=== PATIENT | male | born 1965 ===

== ENCOUNTER 2016-10-03 14:03 | Emergency (ER) | payer OTHER ==
[2016-10-03 14:21] VITALS: BP 114/67; PULSE 52; RESP 18; TEMP 97; O2SAT 98
--- NOTE | 2016-10-03 15:05 | ED PDOC ---
HPI: Skin/Bite Injury Time Seen by Provider: 10/03/16 14:36 Chief Complaint (Nursing): Abnormal Skin Integrity Chief Complaint (Provider): Rash History Per: Patient History/Exam Limitations: no limitations Onset/Duration Of Symptoms: Days (x3 days) Current Symptoms Are (Timing): Still Present Location Of Injury: Anterior: Back, Chest Severity: Mild Additional Complaint(s): Jun Nicolas is a 51 year old male, with no pertinent past medical history, who presents to the emergency department for the evaluation of a non-pruritic, painless rash, localized to anterior chest and back, that the patient has had for the past 3 days. Patient states that he took Benadryl for his symptoms; however, it provided no relief, prompting his visit to the emergency department. Denies a fever. Of note, patient has no known drug allergies. PMD: none specified Past Medical History Reviewed: Historical Data, Nursing Documentation, Vital Signs Vital Signs: Last Vital Signs Temp 97 F L 10/03/16 14:18 Pulse 52 L 10/03/16 14:18 Resp 18 10/03/16 14:18 BP 114/67 10/03/16 14:18 Pulse Ox 98 10/03/16 15:38 - Medical History PMH: Cardia Arrhythmia (saw negative cutter, was admitted with negative workup) - Surgical History Surgical History: Appendectomy - Family History Family History: States: No Known Family Hx - Social History Current smoker - smoking cessation education provided: No Ex-Smoker (has not smoked in the last 12 months): Yes Alcohol: None Drugs: Denies - Home Medications Home Medications: Ambulatory Orders Medication Instructions Recorded Cyclobenzaprine [Cyclobenzaprine 10 mg PO BID #14 tab 11/13/15 HCl] Ibuprofen [Motrin] 400 mg PO Q6 #30 tab 11/13/15 Meclizine [Meclizine*] 25 mg PO Q6 #30 tab 03/04/16 Cyclobenzaprine [Cyclobenzaprine 10 mg PO TID #20 tab 06/20/16 HCl] Ibuprofen [Motrin] 600 mg PO Q6 #20 tab 06/20/16 Hydrocortisone 1% Cream [Cortizone 1 dap TOP BID #1 tube 10/03/16 1% Cream] - Allergies Allergies/Adverse Reactions: Allergies Allergy/AdvReac Type Severity Reaction Status Date / Time No Known Allergies Allergy Verified 10/03/16 14:18 Review of Systems Constitutional: Negative for: Fever Skin: Positive for: Rash (anterior chest and back, non-pruritic and painless) Physical Exam - Reviewed Nursing Documentation Reviewed: Yes Vital Signs Reviewed: Yes - Physical Exam Appears: Positive for: Non-toxic, No Acute Distress Head Exam: Positive for: ATRAUMATIC, NORMOCEPHALIC Skin: Positive for: Normal Color, Warm, Rash (anterior chest and back erythematous maculopapular rash in X-mas tree distrobution) Cardiovascular/Chest: Positive for: Regular Rate, Rhythm. Negative for: Murmur Respiratory: Positive for: Normal Breath Sounds. Negative for: Respiratory Distress Back: Positive for: Normal Inspection. Negative for: L CVA Tenderness, R CVA Tenderness Neurologic/Psych: Positive for: Alert, Oriented - ECG O2 Sat by Pulse Oximetry: 98 (RA) Pulse Ox Interpretation: Normal Medical Decision Making Medical Decision Makin:36 Initial Impression: pityriasis rosea Scribe Attestation: Documented by Faheem Meraz, acting as a scribe for RAMA Muro. Provider Scribe Attestation: All medical record entries made by the Scribe were at my direction and personally dictated by me. I have reviewed the chart and agree that the record accurately reflects my personal performance of the history, physical exam, medical decision making, and the department course for this patient. I have also personally directed, reviewed, and agree with the discharge instructions and disposition. Disposition - Clinical Impression Clinical Impression: Pityriasis rosea - Patient ED Disposition Is Patient to be Admitted: No - Disposition Disposition: Routine/Home Disposition Time: 16:07 Condition: STABLE Prescriptions: Hydrocortisone 1% Cream [Cortizone 1% Cream] 1 dap TOP BID #1 tube Instructions: Pityriasis rosea (ED) - POA Present On Arrival: None
== END 2016-10-03 15:14 | disposition home or self-care (01) ==
LOC: H.ER 14:03
DX: L42 Pityriasis rosea (principal); Z87.891 Personal history of nicotine dependence

== ENCOUNTER 2017-06-24 04:06 | Emergency (ER) | payer OTHER ==
[2017-06-24 04:24] VITALS: BMI 25.6
[2017-06-24 04:26] VITALS: BP 126/71; PULSE 76; RESP 16; TEMP 98.3; O2SAT 97
--- NOTE | 2017-06-24 04:50 | ED PDOC ---
HPI: Hypertension/Hypotension Time Seen by Provider: 06/24/17 04:30 Chief Complaint (Nursing): Chest Pain Chief Complaint (Provider): Palpitations History Per: Patient History/Exam Limitations: no limitations Onset/Duration Of Symptoms: Waxing/Waning, Other (x45 minute durtion) Current Symptoms Are (Timing): Still Present Additional Complaint(s): 52 year old male presents to ED with complaints of palpitations for a 45 minute duration and has a past medical history of valvular heart disease. Notes acute onset of palpitations when the patient returned home after work x2 hours [employer]. (+ ) mild chest pain. (-) nausea, vomiting, or diaphoresis. Notes that he has had this pain in the past and is concerned because of its persistence. admits that upon ED arrival, symptoms have resolved. 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, was admitted with negative workup) Other PMH: valvular heart disease - Surgical History Surgical History: Appendectomy Other surgeries: prosthetic eye - Family History Family History: States: Unknown Family Hx - Living Arrangements Living Arrangements: With Family - Social History Current smoker - smoking cessation education provided: No Ex-Smoker (has not smoked in the last 12 months): No Alcohol: None Drugs: Denies - Home Medications Home Medications: Ambulatory Orders Medication Instructions Recorded Cyclobenzaprine [Cyclobenzaprine 10 mg PO BID #14 tab 11/13/15 HCl] Ibuprofen [Motrin] 400 mg PO Q6 #30 tab 11/13/15 Meclizine [Meclizine*] 25 mg PO Q6 #30 tab 03/04/16 Cyclobenzaprine [Cyclobenzaprine 10 mg PO TID #20 tab 06/20/16 HCl] Ibuprofen [Motrin] 600 mg PO Q6 #20 tab 06/20/16 Hydrocortisone 1% Cream [Cortizone 1 dap TOP BID #1 tube 10/03/16 1% Cream] - Allergies Allergies/Adverse Reactions: Allergies Allergy/AdvReac Type Severity Reaction Status Date / Time No Known Allergies Allergy Verified 06/24/17 04:23 Review of Systems ROS Statement: Except As Marked, All Systems Reviewed And Found Negative Constitutional: Negative for: Sweats Cardiovascular: Positive for: Chest Pain (mild), Palpitations Gastrointestinal: Negative for: Nausea, Vomiting Physical Exam - Reviewed Nursing Documentation Reviewed: Yes Vital Signs Reviewed: Yes - Physical Exam Appears: Positive for: Non-toxic, No Acute Distress Skin: Positive for: Normal Color, Warm, Dry Eye Exam: Positive for: Normal appearance, EOMI, PERRL ENT: Positive for: Normal ENT Inspection Neck: Positive for: Normal Cardiovascular/Chest: Positive for: Regular Rate, Rhythm. Negative for: Chest Non Tender, Murmur Respiratory: Positive for: Normal Breath Sounds. Negative for: Respiratory Distress Gastrointestinal/Abdominal: Positive for: Normal Exam, Soft. Negative for: Tenderness Back: Positive for: Normal Inspection Extremity: Positive for: Normal ROM. Negative for: Deformity Neurologic/Psych: Positive for: Alert, Oriented. Negative for: Motor/Sensory Deficits - Laboratory Results Result Diagrams: 06/24/17 05:09 06/24/17 05:09 - ECG O2 Sat by Pulse Oximetry: 97 (RA) Pulse Ox Interpretation: Normal Medical Decision Making Medical Decision Makin Initial impression: palpitations Initial plan: * EKG * Labs * UDrug screen * TSH * Trop I [id number] Labs reviewed: no clinically significant abnormalities. Patient is stable for discharge home. Dx: palpitations Scribe Attestation: Documented by Sherlyn Jonas acting as a scribe for Kendall Lopez MD. Scribe Attestation: All medical record entries made by the Scribe were at my direction and personally dictated by me. I have reviewed the chart and agree that the record accurately reflects my personal performance of the history, physical exam, medical decision making, and the department course for this patient. I have also personally directed, reviewed, and agree with the discharge instructions and disposition. Disposition - Clinical Impression Clinical Impression: Palpitations - Disposition Disposition: Routine/Home Disposition Time: 06:43 Condition: STABLE Instructions: Palpitations (ED) Forms: [facility] (Ecuadorean) Print Language: LATVIAN
[2017-06-24 05:45] LABS: BASO % 0.7 % (0.0-2.0); EOS # 0.4 K/uL (0.0-0.7); EOS % 5.7 % (0.0-4.0); HEMOGLOBIN 13.6 g/dL (12.0-18.0); MEAN CELL VOLUME 84.8 fl (80.0-94.0); MEAN CORPUSCULAR HEMOGLOBIN 28.1 pg (27.0-31.0); MEAN CORPUSCULAR HGB CONC 33.2 g/dL (33.0-37.0); MONO # 0.8 K/uL (0.0-0.8); MONO % 10.5 % (0.0-10.0); NEUT # 5.3 K/uL (1.8-7.0); NEUT % 70.1 % (50.0-75.0); RBC 4.84 Mil/uL (4.40-5.90); RED CELL DISTRIBUTION WIDTH 12.9 % (11.5-14.5); WHITE BLOOD COUNT 7.5 K/uL (4.8-10.8)
[2017-06-24 05:55] LABS: BLOOD UREA NITROGEN 19 mg/dl (9-20); CALCIUM 9.2 mg/dL (8.4-10.2); GFR AFRICAN-AMERICAN > 60; GFR NON-AFRICAN AMERICAN > 60
[2017-06-24 06:05] LABS: BARBITURATES, UR NEGATIVE (NEGATIVE); BENZODIAZEPINES, UR NEGATIVE (NEGATIVE); OPIATES, UR NEGATIVE (NEGATIVE); PHENCYCLIDINE, UR NEGATIVE (NEGATIVE)
--- NOTE | 2017-06-24 13:00 | CARD ---
APPROVED REPORT EKG Measurement Heart [id number] <Conclusion> Normal sinus rhythm Normal ECG
== END 2017-06-24 06:45 | disposition home or self-care (01) ==
LOC: H.ER 04:06
DX: R00.2 Palpitations (principal); I10 Essential (primary) hypertension

== ENCOUNTER 2018-05-14 07:41 | Emergency (ER) | payer OTHER ==
[2018-05-14 07:42] VITALS: BMI 25.6
[2018-05-14 07:46] VITALS: BP 150/71; PULSE 60; RESP 18; TEMP 97.5; O2SAT 99
[2018-05-14] MEDS ORDERED: Albuterol-Ipratrop 3 mg / 0.5 (3 ml) UD INH STA (09:01)
[2018-05-14] MEDS ORDERED: Iohexol 240 (50 ml) PO ONE (09:04)
[2018-05-14] MEDS ORDERED: Iohexol 240 (50 ml) ONE (09:35)
[2018-05-14 09:43] LABS: BASO # 0.1 K/uL (0.0-0.2); BASO % 0.8 % (0.0-2.0); EOS # 0.8 K/uL (0.0-0.7); EOS % 12.2 % (0.0-4.0); HEMOGLOBIN 14.2 g/dL (12.0-18.0); LYMPH # 1.5 K/uL (1.0-4.3); LYMPH % 22.9 % (20.0-40.0); MEAN CELL VOLUME 86.9 fl (80.0-94.0); MEAN CORPUSCULAR HEMOGLOBIN 28.6 pg (27.0-31.0); MEAN CORPUSCULAR HGB CONC 32.9 g/dL (33.0-37.0); MEAN PLATELET VOLUME 10.2 fl (7.2-11.7); MONO # 0.7 K/uL (0.0-0.8); MONO % 10.1 % (0.0-10.0); NEUT # 3.5 K/uL (1.8-7.0); NRBC % 0.2 % (0.0-0.0); RBC 4.96 Mil/uL (4.40-5.90); RED CELL DISTRIBUTION WIDTH 12.8 % (11.5-14.5); WHITE BLOOD COUNT 6.4 K/uL (4.8-10.8)
[2018-05-14 10:07] LABS: URINE BILIRUBIN NEGATIVE (NEGATIVE); URINE BLOOD NEGATIVE (NEGATIVE); URINE CLARITY CLEAR (Clear); URINE COLOR YELLOW (YELLOW); URINE GLUCOSE (UA) NEG (Normal); URINE LEUKOCYTE ESTERASE NEG Leu/uL (Negative); URINE PROTEIN NEGATIVE (NEGATIVE); URINE UROBILINOGEN 0.2-1.0 mg/dL (0.2-1.0)
[2018-05-14 10:13] LABS: ALB/GLOB RATIO 1.1 (1.0-2.1); ALBUMIN 3.8 g/dL (3.5-5.0); ALT/SGPT 32 U/L (21-72); AST/SGOT 27 U/L (17-59); BLOOD UREA NITROGEN 13 mg/dl (9-20); CALCIUM 8.9 mg/dL (8.4-10.2); GFR NON-AFRICAN AMERICAN > 60
--- NOTE | 2018-05-14 10:38 | ED PDOC ---
HPI: Abdomen Time Seen by Provider: 05/14/18 08:00 Chief Complaint (Nursing): Abdominal Pain Chief Complaint (Provider): Abdominal Pain History Per: Patient History/Exam Limitations: no limitations Onset/Duration Of Symptoms: Hrs Current Symptoms Are (Timing): Still Present Context: Food Location Of Pain/Discomfort: RLQ Quality Of Discomfort: "Pain" Additional Complaint(s): 53 year old male presents to the ED for abdominal pain onset at 3am. Patient states he had his appendix removed and states he has a history of diverticulosis. Patient states before the pain, he ate something he was not supposed to. Denies fever, chills or chest pain. PMD: Dr. 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 - Family History Family History: States: Unknown Family Hx - Social History Current smoker - smoking cessation education provided: No Alcohol: None Drugs: Denies - Home Medications Home Medications: Ambulatory Orders Medication Instructions Recorded Cyclobenzaprine [Cyclobenzaprine 10 mg PO BID #14 tab 11/13/15 HCl] Ibuprofen [Motrin] 400 mg PO Q6 #30 tab 11/13/15 RX: Meclizine [Meclizine*] 25 mg PO Q6 #30 tab 03/04/16 Cyclobenzaprine [Cyclobenzaprine 10 mg PO TID #20 tab 06/20/16 HCl] Ibuprofen [Motrin] 600 mg PO Q6 #20 tab 06/20/16 RX: Hydrocortisone 1% Cream 1 dap TOP BID #1 tube 10/03/16 [Cortizone 1% Cream] - Allergies Allergies/Adverse Reactions: Allergies Allergy/AdvReac Type Severity Reaction Status Date / Time No Known Allergies Allergy Verified 06/24/17 04:23 Review of Systems ROS Statement: Except As Marked, All Systems Reviewed And Found Negative Constitutional: Negative for: Fever, Chills Cardiovascular: Negative for: Chest Pain Respiratory: Negative for: Cough Gastrointestinal: Positive for: Abdominal Pain (right lower quadrant). Negative for: Vomiting, Diarrhea Genitourinary Male: Negative for: Dysuria, Frequency, Incontinence Physical Exam - Reviewed Nursing Documentation Reviewed: Yes Vital Signs Reviewed: Yes - Physical Exam Appears: Positive for: Non-toxic, No Acute Distress Head Exam: Positive for: ATRAUMATIC, NORMAL INSPECTION, NORMOCEPHALIC Skin: Positive for: Normal Color, Warm, Dry. Negative for: Rash Eye Exam: Positive for: EOMI, Normal appearance, PERRL ENT: Positive for: Normal ENT Inspection Neck: Positive for: Normal, Painless ROM Cardiovascular/Chest: Positive for: Regular Rate, Rhythm. Negative for: Murmur Respiratory: Positive for: Normal Breath Sounds. Negative for: Decreased Breath Sounds, Wheezing, Respiratory Distress Gastrointestinal/Abdominal: Positive for: Normal Exam, Soft, Tenderness (RLQ). Negative for: Guarding, Rebound Back: Positive for: Normal Inspection. Negative for: L CVA Tenderness, R CVA Tenderness Extremity: Positive for: Normal ROM. Negative for: Tenderness, Pedal Edema, Deformity Neurologic/Psych: Positive for: Alert, Oriented (x3). Negative for: Motor /Sensory Deficits - Laboratory Results Result Diagrams: 05/14/18 09:25 05/14/18 09:25 - ECG O2 Sat by Pulse Oximetry: 99 (RA) Pulse Ox Interpretation: Normal Medical Decision Making Medical Decision Making: Time: 900 Initial Plan: abdominal pain rule out obstrcution, abscess, diverticulitis Abd Pelvis PO & IV Contrast CT CMP CBC w/ Differential Chest Two Views [RAD] Albuterol 3ml Morphine 2mg Omnipaque 50ml SOLU-Medrol 125mg Urine C&S Peak Flow Pre/Post TX Urinalysis Reevaluation Time: 1117 TECHNIQUE: Chest PA and lateral FINDINGS: LUNGS: No infiltrate. Rounded nodule at the right lung base overlying the anterior end of the right 6th rib, possibly a nipple shadow. The patient should return for repeat PA chest radiograph with radiopaque nipple markers to ascertain this. No other abnormal pulmonary opacity identified. PLEURA: No significant pleural effusion identified. No pneumothorax apparent. CARDIOVASCULAR: No aortic atherosclerotic calcification present. Normal cardiac size. No pulmonary vascular congestion. OSSEOUS STRUCTURES: No significant abnormalities. VISUALIZED UPPER ABDOMEN: Normal. OTHER FINDINGS: None. IMPRESSION: Questionable lung nodule versus nipple shadow at right lung base. Recommend repeat PA chest radiograph with radiopaque nipple markers. Otherwise unremarkable. Time: 1203 PROCEDURE: CT Abdomen and Pelvis with contrast HISTORY: r sided abdo pain COMPARISON: 01/22/2009 TECHNIQUE: Contrast dose: 95 mL Omnipaque 300 Radiation dose: Total exam DLP = 583.17 mGy-cm. This CT exam was performed using one or more of the following dose reduction techniques: Automated exposure control, adjustment of the mA and/or kV according to patient size, and/or use of iterative reconstruction technique. FINDINGS: LOWER THORAX: Unremarkable. LIVER: Unremarkable. No gross lesion or ductal dilatation. GALLBLADDER AND BILE DUCTS: Unremarkable. PANCREAS: Unremarkable. No gross lesion or ductal dilatation. SPLEEN: Unremarkable. ADRENALS: Unremarkable. No mass. KIDNEYS AND URETERS: Unremarkable. No hydronephrosis. No solid mass. VASCULATURE: Unremarkable. No aortic aneurysm. No aortic atherosclerotic calcification or mural plaque present. BOWEL: Sigmoid diverticulosis with minimal mural thickening consistent with muscularis hypertrophy. Scattered diverticula are seen elsewhere throughout the colon. No evidence of diverticulitis. No bowel obstruction. No other abnormal bowel loops. APPENDIX: Not visualized. No secondary findings. PERITONEUM: Unremarkable. No free fluid. No free air. LYMPH NODES: Unremarkable. No enlarged lymph nodes. BLADDER: Unremarkable. REPRODUCTIVE: Normal prostate. Coarse calcifications are seen centrally within the prostate. BONES: No acute fracture. OTHER FINDINGS: None. IMPRESSION: Colonic diverticulosis. No evidence of diverticulitis. No other significant abnormality. Clinical Impression: Diverticulosis pt aware of results. pt tolerated po in the ED. Upon provider reevaluation patient is feeling better, is medically stable, and requires no further treatment in the ED at this time. Patient will be discharged home. Counseling was provided and all questions were answered regarding diagnosis and need for follow up with PMD. There is agreement to discharge plan. Return if symptoms persist or worsen. -------- Scribe Attestation: Documented by Leland Márquez, acting as a scribe for Helder Wagner MD. Provider Scribe Attestation: All medical record entries made by the Scribe were at my direction and per sonally dictated by me. I have reviewed the chart and agree that the record accurately reflects my personal performance of the history, physical exam, medical decision making, and the department course for this patient. I have also personally directed, reviewed, and agree with the discharge instructions and disposition. Disposition - Clinical Impression Clinical Impression: Diverticulosis - Patient ED Disposition Is Patient to be Admitted: No Counseled Patient/Family Regarding: Studies Performed, Diagnosis, Need For Followup - Disposition Disposition: Routine/Home Disposition Time: 12:10 Condition: IMPROVED Additional Instructions: follow up with your primary doctor Dr Alejandro in 1-2 days return to the ED with any worsening or concerning symptoms Instructions: High Fiber Diet, Diverticulosis (DC) Forms: [employer] (Nicaraguan)
--- NOTE | 2018-05-14 11:21 | RAD ---
Date of service: 05/14/2018 HISTORY: copd COMPARISON: 09/14/2015 TECHNIQUE: Chest PA and lateral FINDINGS: LUNGS: No infiltrate. Rounded nodule at the right lung base overlying the anterior end of the right 6th rib, possibly a nipple shadow. The patient should return for repeat PA chest radiograph with radiopaque nipple markers to ascertain this. No other abnormal pulmonary opacity identified. PLEURA: No significant pleural effusion identified. No pneumothorax apparent. CARDIOVASCULAR: No aortic atherosclerotic calcification present. Normal cardiac size. No pulmonary vascular congestion. OSSEOUS STRUCTURES: No significant abnormalities. VISUALIZED UPPER ABDOMEN: Normal. OTHER FINDINGS: None. IMPRESSION: Questionable lung nodule versus nipple shadow at right lung base. Recommend repeat PA chest radiograph with radiopaque nipple markers. Otherwise unremarkable.
[2018-05-14] MEDS ORDERED: Iohexol 300 100 ML IJ ONE (11:42)
[2018-05-14] MEDS ORDERED: Sodium Chloride 0.9% 50 ML IV ONE (11:42)
--- NOTE | 2018-05-14 12:41 | CT ---
Date of service: 05/14/2018 PROCEDURE: CT Abdomen and Pelvis with contrast HISTORY: r sided abdo pain COMPARISON: 01/22/2009 TECHNIQUE: Contrast dose: 95 mL Omnipaque 300 Radiation dose: Total exam DLP = 583.17 mGy-cm. This CT exam was performed using one or more of the following dose reduction techniques: Automated exposure control, adjustment of the mA and/or kV according to patient size, and/or use of iterative reconstruction technique. FINDINGS: LOWER THORAX: Unremarkable. LIVER: Unremarkable. No gross lesion or ductal dilatation. GALLBLADDER AND BILE DUCTS: Unremarkable. PANCREAS: Unremarkable. No gross lesion or ductal dilatation. SPLEEN: Unremarkable. ADRENALS: Unremarkable. No mass. KIDNEYS AND URETERS: Unremarkable. No hydronephrosis. No solid mass. VASCULATURE: Unremarkable. No aortic aneurysm. No aortic atherosclerotic calcification or mural plaque present. BOWEL: Sigmoid diverticulosis with minimal mural thickening consistent with muscularis hypertrophy. Scattered diverticula are seen elsewhere throughout the colon. No evidence of diverticulitis. No bowel obstruction. No other abnormal bowel loops. APPENDIX: Not visualized. No secondary findings. PERITONEUM: Unremarkable. No free fluid. No free air. LYMPH NODES: Unremarkable. No enlarged lymph nodes. BLADDER: Unremarkable. REPRODUCTIVE: Normal prostate. Coarse calcifications are seen centrally within the prostate. BONES: No acute fracture. OTHER FINDINGS: None. IMPRESSION: Colonic diverticulosis. No evidence of diverticulitis. No other significant abnormality.
== END 2018-05-14 14:04 | disposition home or self-care (01) ==
LOC: H.ER 07:41
DX: K57.30 Diverticulosis of large intestine without perforation or abscess without bleeding (principal)
CPT/HCPCS: 71046; 74177; 80053; 81003; 85025; 87086; 96374; 99283; J2270; Q9966; Q9967